=== PATIENT | female | born 1940 | race Caucasian/White ===

== ENCOUNTER → 2024-12-31 07:11 | Outpatient (REF) | payer MEDICARE, OTHER, SELFPAY ==
[2024-12-31 10:12] LABS: ALT (SGPT) 19 U/L (0-35); AST (SGOT) 25 U/L (14-36); Albumin 4.2 g/dl (3.5-5.0); Alkaline Phosphatase 79 U/L (38-126); Blood Urea Nitrogen 17 mg/dl (7-17); Calcium 9.2 mg/dl (8.4-10.2); Carbon Dioxide 32 mmol/L (22-30); Chloride 99 mmol/L (98-107); Glucose 90 mg/dl (70-99); HDL Cholesterol 89 mg/dl; Iron 126 ug/dl (37-170); LDL Cholesterol, Calculated 92 mg/dl; Potassium 4.0 mmol/L (3.5-5.1); Sodium 137 mmol/L (135-145); Total Protein 6.7 g/dl (6.3-8.2); Very Low Density Lipoprotein 12 mg/dl (0-30); eGFR > 60.00
[2024-12-31 10:15] LABS: Hematocrit 43.6 % (37.0-47.0); Hemoglobin 14.2 g/dL (12.0-16.0); Mean Corp Hgb Conc. 32.6 g/dL (33.0-37.0); Mean Corpuscular Volume 93.2 fL (81.0-99.0); Nucleated Red Blood Cells % 0 %; Platelet Count 167 10^3/uL (130-400); Red Cell Dist. Width 13.2 % (11.5-14.5)
[2024-12-31 10:21] LABS: Total Iron Binding Capacity 292 ug/dl (265-497)
[2024-12-31 10:48] LABS: TSH 3.54 uIU/ml (0.47-4.68)
[2024-12-31 10:52] LABS: Ferritin 55.8 ng/ml (11.1-264.0)
== END ==
LOC: HWLAB 07:11
PROVIDERS: ATTENDING PHYSICIAN Family Medicine
DX: R20.9 Unspecified disturbances of skin sensation (principal); Z01.89 Encounter for other specified special examinations; Z13.220 Encounter for screening for lipoid disorders; I34.0 Nonrheumatic mitral (valve) insufficiency; L29.9 Pruritus, unspecified
CPT/HCPCS: 36415; 80053; 80061; 82728; 83540; 83550; 84439; 84443; 85025